=== PATIENT | male | born 1975 | race Caucasian/White ===

== ENCOUNTER 2016-10-30 21:15 | Inpatient (IN) | payer BC ==
--- NOTE | ~2016-10-30 | EGD ---
EGD REPORT [facility] [address] [address] NAME: ISA ASIF : [birth year] STATUS : DIS IN PAT#: [id number] AGE: 40 ADM/REG DATE : 10/31/16 MR#: [id number] REPORT SERV DATE: 11/02/16 DICTATED BY: GAURANG SOUTH DATE: 11/02/16 REPORT STATUS : Draft TRANSCRIBED BY: [facility] DATE: 11/02/16 Endoscopy Center Patient Name: Isa Asif Date of : 1975 Attending MD: GAURANG SOUTH MD Procedure Date No Time: 11/01/2016 Procedure: Colonoscopy Indications: Hematochezia Medicines: Monitored Anesthesia Care Complications: No immediate complications. Estimated blood loss: None. Procedure: Pre-Anesthesia Assessment: - ASA Grade Assessment: III - A patient with severe systemic disease. After I obtained informed consent, the scope was passed under direct vision. Throughout the procedure, the patient's blood pressure, pulse, and oxygen saturations were monitored continuously. The CF [id number] was introduced through the sigmoid colostomy and advanced to the terminal ileum, with identification of the appendiceal orifice and IC valve. The colonoscopy was performed without difficulty. The patient tolerated the procedure well. The quality of the bowel preparation was good. Findings: The terminal ileum appeared normal. The colon (entire examined portion) appeared normal. An area of irritation was seen at the ostomy. This was likely the source of bleeding. The exam was otherwise without abnormality. Impression: - The examined portion of the ileum was normal. - The entire examined colon is normal. - An area of irritation was seen at the ostomy. This was likely the source of bleeding. Recommendation: - Discharge patient to home (ambulatory). Procedure Code(s): --- Professional --- 77084, Colonoscopy through stoma; diagnostic, with or without collection of specimen(s) by brushing or washing (separate procedure) Diagnosis Code(s): --- Professional --- K92.1, Melena EGD REPORT [facility] [address]. [address] NAME: ISA ASIF : [birth year] STATUS : DIS IN PAT#: [id number] AGE: 40 ADM/REG DATE : 10/31/16 MR#: [id number] REPORT SERV DATE: 11/02/16 DICTATED BY: GAURANG SOUTH DATE: 11/02/16 REPORT STATUS : Draft TRANSCRIBED BY: [facility] DATE: 11/02/16 CPT copyright 2013 [employer]. All rights reserved. The codes documented in this report are preliminary and upon php engineer review may be revised to meet current compliance requirements. Gaurang South MD GAURANG SOUTH MD 11/02/2016 9:46 AM This report has been signed electronically. Number of Addenda: 0 Note Initiated On: 11/01/2016 4:45 PM Scope Withdrawal Time 0 hours 5 minutes 27 seconds [address] [place] [address]
--- NOTE | ~2016-10-30 | CN ---
Consultation Report [facility] [address] [place]. [address] NAME: ISA ASIF : [birth year] STATUS : ADM IN PAT#: [id number] AGE: 40 ADM/REG DATE : 10/31/16 MR#: [id number] REPORT SERV DATE: 10/31/16 DICTATED BY: NANCY SMITH DATE: 10/31/16 REPORT STATUS : Draft TRANSCRIBED BY: MODL DATE: 10/31/16 GI CONSULTATION DATE OF CONSULTATION: 10/31/2016 REASON FOR CONSULTATION: Evaluation and management of GI bleeding. HISTORY OF PRESENT ILLNESS: Mr. Asif is a 40-year-old male patient, known to Dr. Juwan Gutierrez in the outpatient setting, who presented to [facility] on 10/30 with a chief complaint of blood per ostomy. He states that he began having some nausea secondary to what he said was sinus drainage several days ago. He states that he vomited a few times, but it was only clear material. He began yesterday to notice that he had blood with dark blood clots in his ostomy and some abdominal discomfort. Secondary to the blood, he came into the emergency room for further evaluation. On admission, his hemoglobin was 10.7. He had a CT scan without contrast, showing hepatomegaly, showing ostomy on the left with a large parastomal hernia as well as an incidental midline umbilical hernia. He has had one bowl of magnesium citrate at the time of my rounding, and I have opened up his ostomy bag and he has bright red blood in the bag with no blood clots or stool at this time. He has a pertinent medical history of having a colonoscopy with Dr. Gutierrez in 08/2014. On that exam, it revealed a rectal mass 3-4 cm from the anal verge and he had a normal ileum, stating this was likely a malignant, partially obstructing tumor of the rectum, it was biopsied and chromoscopy was done. He was sent to Dr. Cormier for surgical intervention, which he underwent on 12/02/2014. He had an exploratory laparotomy with abdominoperineal resection with descending colostomy and primary repair of an incarcerated supraumbilical incisional hernia. 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 He has had prostatic bed revision, showing acellular mucin without malignant cells; sigmoid colon resection, no malignancy or dysplasia; mesenteric lymph nodes, he had no metastasis. He had complications with MRSA. He states that he went to [place] after hospitalization. He is presently disabled. He states that he has been taking some NSAID products recently for his sinus drainage, but stops that roughly two weeks ago, concerning that it was upsetting his stomach. He denies any heartburn or indigestion. He denies any black stools. He denies any fever, chills, chest pain, or shortness of breath. I have discussed with him as well as discussed with Dr. Head and Dr. Lopez, we will plan on starting him on an octreotide drip in addition to his Protonix drip secondary to heavy alcohol use, stated 20-24 beers daily. Continue to prep him for colonoscopy to be done on 11/01. I did discuss with the patient risks, benefits, alternatives, and complications that were detailed for him to include, but not limited to risk of bleeding, perforation, infection, reaction to medications, as well as cardiac and pulmonary side effects. He is agreeable to proceed. It should be noted that the patient has not had a repeat colonoscopy since his surgical intervention with Dr. Cormier despite numerous attempts to schedule him. PAST MEDICAL HISTORY: Positive for anal cancer, status post resection; hernia with hernia repair; chronic back pain; sepsis; MRSA; hypertension; alcohol abuse. Consultation Report [address] [place]. [address] NAME: ISA ASIF : [birth year] STATUS : ADM IN [facility]#: [id number] AGE: 40 ADM/REG DATE : 10/31/16 MR#: [id number] REPORT SERV DATE: 10/31/16 DICTATED BY: NANCY SMITH DATE: 10/31/16 REPORT STATUS : Draft TRANSCRIBED BY: MODFernanda DATE: 10/31/16 PAST SURGICAL HISTORY: Port-A-Cath placement, colon resection, hernia repair. SOCIAL HISTORY: He lives with his parents and his son. He denies any tobacco. No illicits, but he is positive for alcohol use daily, up to 20-24 beers. ALLERGIES: TO NOTHING. HOME MEDICATIONS: Prozac, Neurontin, Cozaar, Ditropan, Roxicodone, and Percocet. REVIEW OF SYSTEMS: A 10-point review of systems has been obtained with pertinent positives being addressed in the history of present illness. PERTINENT LABORATORY DATA: Sodium 141, potassium 4.2, BUN is 6, creatinine 0.77. White count 4.2, hemoglobin 11.1, hematocrit 32.8, platelet count 100. INR of 1.3. His total bilirubin is 0.5, his alkaline phosphatase is 69, his ALT is 106, his AST is 121. PHYSICAL EXAMINATION: VITAL SIGNS: Temperature 98.0, pulse 100, respirations 24, and blood pressure 135/76. NEURO: Reveals an alert male, resting in bed with no focal deficits. GENERAL: Cooperative, in no apparent distress. Awake, alert, and oriented x3. Obese body habitus. HEAD, EARS, EYES, NOSE, AND THROAT: Anicteric. Pupils equal, round, reactive to light and accommodation. Normocephalic and atraumatic. NECK: No JVD. No palpable nodes. LUNGS: Clear anteriorly with normal respiratory effort exhibited. Equal expansion. CARDIOVASCULAR SYSTEM: Regular rate and rhythm, but tachycardic. No murmurs, rubs, or gallops auscultated. ABDOMEN: Soft and obese. Left ostomy with bright red blood in the bag. Hernia on the left side. Minimal tenderness to palpation. EXTREMITIES: No edema. Normal distal pulses. SKIN: Warm, dry, and intact. ASSESSMENT: 1. GI bleed, most likely lower, but however, must consider upper as well as when he has a history of alcoholism, that could be variceal, could be peptic ulcer disease, could be diverticular, could be cancer recurrence. 2. Nausea with vomiting, nonbloody. 3. Positive for alcohol abuse. 4. Anemia. 5. History of anal cancer, status post resection with left-sided ostomy in 2014. PLAN: 1. Clear liquid diet and n.p.o. after midnight. 2. Continue bowel prep today. Consultation Report [address] [place]. [address] NAME: ISA ASIF : [birth year] STATUS : ADM IN [facility]#: [id number] AGE: 40 ADM/REG DATE : 10/31/16 MR#: [id number] REPORT SERV DATE: 10/31/16 DICTATED BY: NANCY SMITH DATE: 10/31/16 REPORT STATUS : Draft TRANSCRIBED BY: ALEXANDER DATE: 10/31/16 3. We will begin octreotide drip for coverage with consideration of esophageal variceal bleeding. Continue his proton pump inhibitor drip. 4. EGD and colonoscopy on 11/01 after adequate prep. 5. Serial H and H, transfuse as needed. 6. We will have RN to call if excessive bleeding or acute drop in H and H. We will follow. NOAH/ALEXANDER Nancy RAMO Love / [id number] CC: MD Jeni Gallagher M.D.
--- NOTE | ~2016-10-30 | EGD ---
EGD REPORT [facility] [address] [address] NAME: ISA ASIF : [birth year] STATUS : DIS IN PAT#: [id number] AGE: 40 ADM/REG DATE : 10/31/16 MR#: [id number] REPORT SERV DATE: 11/02/16 DICTATED BY: GAURANG SOUTH DATE: 11/02/16 REPORT STATUS : Draft TRANSCRIBED BY: [facility] DATE: 11/02/16 Endoscopy Center Patient Name: Isa Asif Date of : 1975 Attending MD: GAURANG SOUTH MD Procedure Date No Time: 11/01/2016 Procedure: Upper GI endoscopy Indications: Hematochezia Medicines: Monitored Anesthesia Care Complications: No immediate complications. Estimated blood loss: None. Procedure: Pre-Anesthesia Assessment: - ASA Grade Assessment: III - A patient with severe systemic disease. After obtaining informed consent, the endoscope was passed under direct vision. Throughout the procedure, the patient's blood pressure, pulse, and oxygen saturations were monitored continuously. The GIF [id number] was introduced through the mouth, and advanced to the second part of duodenum. The upper GI endoscopy was accomplished without difficulty. The patient tolerated the procedure well. Findings: The esophagus was normal. The stomach was normal. The examined duodenum was normal. Impression: - Normal examination Recommendation: - Perform a colonoscopy today. Procedure Code(s): --- Professional --- 21733, Esophagogastroduodenoscopy, flexible, transoral; diagnostic, including collection of specimen(s) by brushing or washing, when performed (separate procedure) Diagnosis Code(s): --- Professional --- K92.1, Melena CPT copyright 2013 [employer]. All rights reserved. The codes documented in this report are preliminary and upon oracle specialist review may be revised to meet current compliance requirements. EGD REPORT [facility] [address] [address] NAME: ISA ASIF : [birth year] STATUS : DIS IN PAT#: [id number] AGE: 40 ADM/REG DATE : 10/31/16 MR#: [id number] REPORT SERV DATE: 11/02/16 DICTATED BY: GAURANG SOUTH DATE: 11/02/16 REPORT STATUS : Draft TRANSCRIBED BY: [employer] DATE: 11/02/16 Gaurang South MD GAURANG SOUTH MD 11/02/2016 9:43 AM This report has been signed electronically. Number of Addenda: 0 Note Initiated On: 11/01/2016 4:45 PM Scope Withdrawal Time 0 hours 0 minutes 0 seconds [address] [address]
--- NOTE | ~2016-10-30 | DS ---
Discharge Summary [facility] [address] [facility] [place]. [address] NAME: ISA STARK : [birth year] STATUS : DIS IN PAT#: [id number] AGE: 40 ADM/REG DATE : 10/31/16 MR#: [id number] REPORT SERV DATE: 11/02/16 DICTATED BY: CECILIA LOPEZ DATE: 11/01/16 REPORT STATUS : Draft TRANSCRIBED BY: MODL DATE: 11/01/16 ADMISSION DATE: 10/31/2016 DISCHARGE DATE: 11/01/2016 DISCHARGE DIAGNOSES: 1. Normal endoscopy, initially admitted for gastrointestinal bleeding. 2. History of anal cancer status post resection and stoma. HOSPITAL COURSE: The patient presented with what was thought to be lower GI bleed, some nausea and vomiting. Some alcohol use. Mild anemia which is known, he is followed by Dr. Donnell Toscano, by Dr. Michael Mckinney, and Dr. Jeni Gonzalez. On examination he is thought to have a rectal mass in 2014 that was resected and was found to be malignant. He is placed on octreotide and Protonix infusion. During his stay he underwent endoscopy, and they found just irritation of stomal opening and normal colon. His vital signs have been stable throughout and his laboratories including his hemoglobin have been stable. His hepatic function panel today showed a sodium 142, potassium 4.7, chloride 104, CO2 of 32, BUN 7, creatinine 0.8, glucose 131, calcium 8.5, total protein 7.3, total bilirubin 0.9, alkaline phosphatase 75, ALT 157, AST 286. There were mildly elevated on admission as well. His H and H when he came in was 10.7 and 32.2, and on discharge was 10.5 and 33.2, white count 4.0, and platelet count 93,000. IMPRESSION: Stable status post history of rectal colon cancer with surgery, negative endoscopy. He will be discharged to home. His vital signs were within normal limits. DISCHARGE MEDICATIONS: His discharge medications will be his usual home medications which include: 1. Oxycodone 30 mg p.o. b.i.d. 2. Ditropan 5 mg p.o. b.i.d. 3. Neurontin 600 mg p.o. b.i.d. 4. Prozac 20 mg p.o. h.s. 5. Librium 25 mg p.o. q.4 hours. RP/MODL Cecilia Lopez M.D. / [id number] CC: MD Jeni Gallagher M.D. Darrell Johnson, M.D. J. Daniel Stanley, M.D.
--- NOTE | ~2016-10-30 | HP ---
History And Physical [facility] [place]. [address] NAME: ISA STARK : [birth year] STATUS : ADM [facility]#: [id number] AGE: 40 ADM/REG DATE : 10/31/16 MR#: [id number] REPORT SERV DATE: 10/31/16 DICTATED BY: BERNADETTE RIDDLE DATE: 10/31/16 REPORT STATUS : Draft TRANSCRIBED BY: MODL DATE: 10/31/16 DATE OF ADMISSION: 10/31/2016 ADMISSION DIAGNOSIS: Gastrointestinal bleed. CHIEF COMPLAINT: Vomiting up blood. HISTORY OF PRESENT ILLNESS: Mr. Stark is a 40-year-old male with a past medical history of rectal cancer, status post ileostomy. On 10/29, the patient began having bleeding through the ileostomy at 1030 hours at nighttime. This continued in the morning of 10/30, he also was having some abdominal pain, blood was full of clots and dark. No significant abdominal pain, he has his chronic rectal pain. In the emergency room, the patient was noted to be orthostatic. PAST MEDICAL HISTORY: Hernia, chronic back pain, history of rectal cancer status post resection, history of sepsis, hypertension. HOME MEDICATIONS: Prozac, Neurontin, Roxicodone 30 mg twice daily, Percocet 10 mg three times daily, losartan, oxybutynin. ALLERGIES: NO KNOWN DRUG ALLERGIES. FAMILY HISTORY: Grandfather had gastric cancer and COPD. SOCIAL HISTORY: The patient is currently accompanied by his brother, the patient lives with his son and parents, no smoking, however, the patient states that he drinks around 10-12 beers a day; however, brother believes it is more at 20-24 beer cans a day. REVIEW OF SYSTEMS: All pertinent review of systems is reviewed and is otherwise negative. PHYSICAL EXAMINATION: VITAL SIGNS: The patient is currently afebrile, heart rate in the 90s, respiratory rate 13, oxygen saturation 95% on room air, blood pressure currently is 136/83 in the emergency room. GENERAL: The patient is alert and oriented, in no acute distress. HEENT: No JVD, no cervical lymphadenopathy. PULMONARY: Lungs are clear to auscultation bilaterally. CARDIAC: Regular rate, no murmurs. ABDOMEN: The patient has mild tenderness in the left lower quadrant with a hernia around the ileostomy, no blood in the ileostomy bag; however, the patient stated that he emptied this two hours ago. EXTREMITIES: The patient has good capillary refill, comparable pulses noted bilaterally, no cyanosis. LABORATORY DATA: Hemoglobin went from 10.7-11.1, platelet count 106. Good kidney function. AST and ALT are mildly elevated. History And Physical [address] [address] NAME: ISA STARK : [birth year] STATUS : ADM IN PAT#: [id number] AGE: 40 ADM/REG DATE : 10/31/16 MR#: [id number] REPORT SERV DATE: 10/31/16 DICTATED BY: BERNADETTE RIDDLE DATE: 10/31/16 REPORT STATUS : Draft TRANSCRIBED BY: ALEXANDER DATE: 10/31/16 IMAGING DATA: CT scan of the abdomen was done, which shows no recurrence of cancer. No other significant findings. ASSESSMENT AND PLAN: Mr. Stark is a 40-year-old gentleman with a past medical history of rectal cancer, who presents with bleeding from the ileostomy; however, there was also concern of gastritis due to the heavy alcohol use. 1. GI bleeding: Unclear of the etiology, possible upper GI bleed, Gastroenterology is aware of the patient, recommend that he have an endoscopy, we will at this moment in time keep him n.p.o. and start him on Protonix drip. 2. Blood loss anemia: Unclear of what his baseline is, we will continue to check serial CBCs. 3. Alcohol abuse: At this moment in time, we will start aggressive Librium due to his heavy use of alcohol. 4. FEN: The patient is currently n.p.o. 5. Goals of care: The patient is currently full code. HFQ/MODL Bernadette Riddle MD / [id number] CC: MD Jeni Gallagher M.D.
[~2016-10-30 21:15] MED LIST: ATV1 PO; BEN25UDL IV; CENTRUM TAB1 TAB PO; CHEMOTHERAPY; COZAAR100 MG PO; DIL1INJ IV; DIL4TAB PO; DILAUDID8 MG PO; EZFE 200200 MG PO; HYDROMET1 ML IV; IBU800 PO; IRON325 MG PO; KLONO1 PO; LIDOVISCUD TOP; LOP25 PO; LOP50 PO; MIRALAXPKT PO; MOMUD PO; MSCONT15 PO; MULTIVIT/MIN PO; NEUR100 PO; OXYCON20 PO; PEP20 PO; PERCOCET1 TA4 PO; PR25 PO; PRILO PO; REMERON30 MG PO; REMERON45 MG PO; SENTAB PO; VANCO1P IV; ZOFRAN4 MG/5 ML IV; ZOFRAN8 PO; ZOFRANODT8 PO; ZOSYN375 IV
[2016-10-30] MEDS ORDERED: NEUR600 PO (21:51)
[2016-10-30] MEDS ORDERED: PROZAC PO (21:52)
[2016-10-30] MEDS ORDERED: ROXICODONE30 MG PO (21:53)
[2016-10-30] MEDS ORDERED: PERCOCET 10/3251 TAB PO (21:54)
[2016-10-30] MEDS ORDERED: DITRO5 PO (21:58)
[2016-10-30] MEDS ORDERED: COZAAR100 MG PO (22:02)
[2016-10-30 22:42] LABS: BASOPHILS 0.5 %; BASOPHILS ABSOLUTE 0.02 10/3/uL (0.0-0.16); EOSINOPHILS 1.9 %; EOSINOPHILS ABSOLUTE 0.08 10/3/uL (0.0-0.53); ER CBC TAT 0 Hrs 09 Mins; HEMATOCRIT 32.2 % (40.0-51.0); HEMOGLOBIN 10.7 g/dL (13.6-17.8); IMMATURE GRANULOCYTES 0.2 %; IMMATURE GRANULOCYTES ABSOLUTE 0.01 10/3/uL (0.0-0.11); LYMPHOCYTES 25.5 %; LYMPHOCYTES ABSOLUTE 1.07 10/3/uL (0.67-4.30); MANUAL DIFF NO %; MEAN CORPUS HGB CONC 33.2 g/dL (32.0-36.0); MEAN CORPUSCULAR HEMOGLOB 31.5 pg (26.0-34.0); MEAN CORPUSCULAR VOLUME 94.7 fL (80-100); MEAN PLATELET VOLUME 9.9 fL (9.2-13.0); MONOCYTES 11.4 %; MONOCYTES ABSOLUTE 0.48 10/3/uL (0.21-1.20); NEUTROPHILS 60.5 %; NEUTROPHILS ABSOLUTE 2.54 10/3/uL (2.02-8.40); PLATELET COUNT 106 10/3/uL (150-400); RBC DISTRIBUTION WIDTH 14.8 % (12.0-16.0); WHITE BLOOD CELLS 4.2 10/3/uL (4.5-10.5)
[2016-10-30 22:52] LABS: INTERNATIONAL NORMAL RATI 1.3 UNITS (-); PARTIAL THROMBO TIME 30.3 SEC (22.5-37.2); PROTIME (NOT ORD) 15.7 SEC (12.0-14.5)
[2016-10-30 22:59] LABS: BUN (BLOOD UREA NITROGEN) 7 MG/DL (6-23); CALCIUM, SERUM 8.7 MG/DL (8.5-10.4); CHLORIDE, SERUM 102 MMOL/L (96-112); CO2 (CARBON DIOXIDE) 28 MMOL/L (24-34); CREATININE 0.79 MG/DL (0.70-1.30); GFR AFRICAN AMERICAN 129 ML/MIN (>=60); GFR NON AFRICAN AMERICAN 112 ML/MIN (>=60); GLUCOSE, SERUM 99 MG/DL (60-99); POTASSIUM, SERUM 4.2 MMOL/L (3.5-5.3); SGOT(AST) 121 U/L (5-40); SGPT(ALT) 106 U/L (5-65); SODIUM, SERUM 138 MMOL/L (135-148); TOTAL BILIRUBIN 0.5 MG/DL (0-1.2); TOTAL PROTEIN 7.1 G/DL (6.0-8.5)
[2016-10-30 23:00] LABS: A/G RATIO 0.9 (0.7-1.9); ALBUMIN 3.3 G/DL (3.5-5.0); ALKALINE PHOSPHATASE 69 U/L (45-117); GLOBULIN 3.8 G/DL (2.5-4.1)
[2016-10-31 04:22] LABS: BASOPHILS 0.5 %; BASOPHILS ABSOLUTE 0.02 10/3/uL (0.0-0.16); EOSINOPHILS 1.7 %; EOSINOPHILS ABSOLUTE 0.07 10/3/uL (0.0-0.53); HEMATOCRIT 33.8 % (40.0-51.0); HEMOGLOBIN 11.1 g/dL (13.6-17.8); IMMATURE GRANULOCYTES 0.2 %; IMMATURE GRANULOCYTES ABSOLUTE 0.01 10/3/uL (0.0-0.11); LYMPHOCYTES 27.6 %; LYMPHOCYTES ABSOLUTE 1.15 10/3/uL (0.67-4.30); MANUAL DIFF NO %; MEAN CORPUS HGB CONC 32.8 g/dL (32.0-36.0); MEAN CORPUSCULAR HEMOGLOB 31.2 pg (26.0-34.0); MEAN CORPUSCULAR VOLUME 94.9 fL (80-100); MEAN PLATELET VOLUME 9.4 fL (9.2-13.0); MONOCYTES ABSOLUTE 0.46 10/3/uL (0.21-1.20); NEUTROPHILS ABSOLUTE 2.46 10/3/uL (2.02-8.40); PLATELET COUNT 100 10/3/uL (150-400); RBC DISTRIBUTION WIDTH 14.9 % (12.0-16.0); RED CELL COUNT 3.56 10/6/uL (4.7-6.1); WHITE BLOOD CELLS 4.2 10/3/uL (4.5-10.5)
[2016-10-31 04:33] LABS: BUN (BLOOD UREA NITROGEN) 6 MG/DL (6-23); CHLORIDE, SERUM 105 MMOL/L (96-112); CO2 (CARBON DIOXIDE) 27 MMOL/L (24-34); CREATININE 0.77 MG/DL (0.70-1.30); GFR AFRICAN AMERICAN 131 ML/MIN (>=60); GFR NON AFRICAN AMERICAN 113 ML/MIN (>=60); GLUCOSE, SERUM 99 MG/DL (60-99); POTASSIUM, SERUM 4.2 MMOL/L (3.5-5.3); SODIUM, SERUM 141 MMOL/L (135-148)
[2016-10-31 10:50] LABS: BASOPHILS 0.3 %; BASOPHILS ABSOLUTE 0.01 10/3/uL (0.0-0.16); EOSINOPHILS 0.8 %; EOSINOPHILS ABSOLUTE 0.03 10/3/uL (0.0-0.53); HEMATOCRIT 31.9 % (40.0-51.0); HEMOGLOBIN 10.4 g/dL (13.6-17.8); IMMATURE GRANULOCYTES 0.8 %; IMMATURE GRANULOCYTES ABSOLUTE 0.03 10/3/uL (0.0-0.11); LYMPHOCYTES 17.5 %; LYMPHOCYTES ABSOLUTE 0.68 10/3/uL (0.67-4.30); MANUAL DIFF NO %; MEAN CORPUS HGB CONC 32.6 g/dL (32.0-36.0); MEAN CORPUSCULAR HEMOGLOB 30.8 pg (26.0-34.0); MEAN CORPUSCULAR VOLUME 94.4 fL (80-100); MEAN PLATELET VOLUME 10.2 fL (9.2-13.0); MONOCYTES ABSOLUTE 0.39 10/3/uL (0.21-1.20); NEUTROPHILS 70.6 %; NEUTROPHILS ABSOLUTE 2.75 10/3/uL (2.02-8.40); PLATELET COUNT 95 10/3/uL (150-400); RBC DISTRIBUTION WIDTH 15.1 % (12.0-16.0); RED CELL COUNT 3.38 10/6/uL (4.7-6.1); WHITE BLOOD CELLS 3.9 10/3/uL (4.5-10.5)
[2016-10-31 16:40] LABS: BASOPHILS 1.1 %; BASOPHILS ABSOLUTE 0.04 10/3/uL (0.0-0.16); EOSINOPHILS 1.4 %; EOSINOPHILS ABSOLUTE 0.05 10/3/uL (0.0-0.53); HEMATOCRIT 31.6 % (40.0-51.0); HEMOGLOBIN 10.3 g/dL (13.6-17.8); IMMATURE GRANULOCYTES 1.4 %; IMMATURE GRANULOCYTES ABSOLUTE 0.05 10/3/uL (0.0-0.11); LYMPHOCYTES 23.2 %; LYMPHOCYTES ABSOLUTE 0.86 10/3/uL (0.67-4.30); MEAN CORPUS HGB CONC 32.6 g/dL (32.0-36.0); MEAN CORPUSCULAR HEMOGLOB 30.9 pg (26.0-34.0); MEAN CORPUSCULAR VOLUME 94.9 fL (80-100); MEAN PLATELET VOLUME 10.1 fL (9.2-13.0); MONOCYTES 10.5 %; MONOCYTES ABSOLUTE 0.39 10/3/uL (0.21-1.20); NEUTROPHILS 62.4 %; NEUTROPHILS ABSOLUTE 2.31 10/3/uL (2.02-8.40); PLATELET COUNT 90 10/3/uL (150-400); RBC DISTRIBUTION WIDTH 14.9 % (12.0-16.0); RED CELL COUNT 3.33 10/6/uL (4.7-6.1); WHITE BLOOD CELLS 3.7 10/3/uL (4.5-10.5)
[2016-10-31 16:45] LABS: MANUAL DIFF NO %
[2016-10-31 22:22] LABS: BASOPHILS 0.5 %; BASOPHILS ABSOLUTE 0.02 10/3/uL (0.0-0.16); EOSINOPHILS 1.8 %; EOSINOPHILS ABSOLUTE 0.07 10/3/uL (0.0-0.53); HEMATOCRIT 32.4 % (40.0-51.0); HEMOGLOBIN 10.5 g/dL (13.6-17.8); IMMATURE GRANULOCYTES ABSOLUTE 0.04 10/3/uL (0.0-0.11); LYMPHOCYTES 25.8 %; LYMPHOCYTES ABSOLUTE 1.01 10/3/uL (0.67-4.30); MEAN CORPUS HGB CONC 32.4 g/dL (32.0-36.0); MEAN CORPUSCULAR HEMOGLOB 30.7 pg (26.0-34.0); MEAN CORPUSCULAR VOLUME 94.7 fL (80-100); MEAN PLATELET VOLUME 10.3 fL (9.2-13.0); MONOCYTES 8.4 %; MONOCYTES ABSOLUTE 0.33 10/3/uL (0.21-1.20); NEUTROPHILS 62.5 %; NEUTROPHILS ABSOLUTE 2.44 10/3/uL (2.02-8.40); PLATELET COUNT 95 10/3/uL (150-400); RBC DISTRIBUTION WIDTH 14.9 % (12.0-16.0); RED CELL COUNT 3.42 10/6/uL (4.7-6.1); WHITE BLOOD CELLS 3.9 10/3/uL (4.5-10.5)
[2016-10-31 22:23] LABS: MANUAL DIFF NO %
[2016-11-01 04:14] LABS: BASOPHILS 0.2 %; BASOPHILS ABSOLUTE 0.01 10/3/uL (0.0-0.16); EOSINOPHILS 2.5 %; HEMATOCRIT 34.2 % (40.0-51.0); LYMPHOCYTES 28.4 %; LYMPHOCYTES ABSOLUTE 1.14 10/3/uL (0.67-4.30); MEAN CORPUS HGB CONC 32.2 g/dL (32.0-36.0); MEAN CORPUSCULAR HEMOGLOB 31.5 pg (26.0-34.0); MEAN PLATELET VOLUME 10.1 fL (9.2-13.0); MONOCYTES 8.2 %; MONOCYTES ABSOLUTE 0.33 10/3/uL (0.21-1.20); NEUTROPHILS 60.7 %; NEUTROPHILS ABSOLUTE 2.43 10/3/uL (2.02-8.40); PLATELET COUNT 93 10/3/uL (150-400); RBC DISTRIBUTION WIDTH 14.8 % (12.0-16.0); RED CELL COUNT 3.49 10/6/uL (4.7-6.1)
[2016-11-01 04:23] LABS: MANUAL DIFF NO %
[2016-11-01 04:27] LABS: ALBUMIN 3.2 G/DL (3.5-5.0); ALKALINE PHOSPHATASE 75 U/L (45-117); BUN (BLOOD UREA NITROGEN) 7 MG/DL (6-23); CALCIUM, SERUM 8.5 MG/DL (8.5-10.4); CHLORIDE, SERUM 104 MMOL/L (96-112); CREATININE 0.89 MG/DL (0.70-1.30); GFR AFRICAN AMERICAN 123 ML/MIN (>=60); GFR NON AFRICAN AMERICAN 106 ML/MIN (>=60); INDIRECT BILIRUBIN(NOT ORDER) 0.6 MG/DL (0.1-0.9); POTASSIUM, SERUM 4.7 MMOL/L (3.5-5.3); SGOT(AST) 286 U/L (5-40); SGPT(ALT) 157 U/L (5-65); SODIUM, SERUM 142 MMOL/L (135-148); TOTAL BILIRUBIN 0.9 MG/DL (0-1.2); TOTAL PROTEIN 7.3 G/DL (6.0-8.5)
[2016-11-01 04:28] LABS: CO2 (CARBON DIOXIDE) 32 MMOL/L (24-34); DIRECT BILIRUBIN 0.3 MG/DL (0.0-0.4); GLUCOSE, SERUM 131 MG/DL (60-99)
[2016-11-01 04:29] LABS: INTERNATIONAL NORMAL RATI 1.3 UNITS (-); PARTIAL THROMBO TIME 30.3 SEC (22.5-37.2); PROTIME (NOT ORD) 16.5 SEC (12.0-14.5)
[2016-11-01 13:15] LABS: HEMATOCRIT 33.2 % (40.0-51.0); HEMOGLOBIN 10.5 g/dL (13.6-17.8)
[2016-11-01 17:50] LABS: HEMATOCRIT 32.2 % (40.0-51.0); HEMOGLOBIN 10.4 g/dL (13.6-17.8)
== END 2016-11-01 18:53 | disposition home or self-care (01) | DRG 378 ==
LOC: ER 21:15 → CVICU 10-31 01:35
PROVIDERS: Internal Medicine Critical Care Medicine; Internal Medicine Gastroenterology; Nurse Practitioner Acute Care; Nurse Practitioner Family
PROC: 0DJ08ZZ Inspection of Upper Intestinal Tract, Via Natural or Artificial Opening Endoscopic (ICD-10-PCS; principal; 2016-11-01 07:30)
PROC: 0DJD8ZZ Inspection of Lower Intestinal Tract, Via Natural or Artificial Opening Endoscopic (ICD-10-PCS; 2016-11-01 07:30)
DX: K92.2 Gastrointestinal hemorrhage, unspecified (principal); D62 Acute posthemorrhagic anemia; I10 Essential (primary) hypertension; F10.10 Alcohol abuse, uncomplicated; Z85.048 Personal history of other malignant neoplasm of rectum, rectosigmoid junction, and anus; Z79.899 Other long term (current) drug therapy; Z80.0 Family history of malignant neoplasm of digestive organs; Z90.49 Acquired absence of other specified parts of digestive tract; Z98.890 Other specified postprocedural states
CPT/HCPCS: 36415; 74176; 80048; 80053; 80076; 83690; 85014; 85018; 85025; 85610; 85730; 86850; 86900; 86901; 87641; 93005; 96374; 96375; 99285; A9270-GY; C9113; J2405